=== PATIENT | male | born 1945 | race Caucasian/White ===

== ENCOUNTER 2017-01-03 14:14 | Emergency (ER) | payer OTHER, BC ==
[~2017-01-03] VITALS: Ht 188 cm; Wt 118.8 kg
[~2017-01-03 14:14] MED LIST: ALLOPURINOL300 MG PO; ATORVASTATIN CA80 MG PO; CO Q-10200 MG PO; DAILY VITE1 EAC1 PO; DIAZEPAM2 MG PO; ENDOCET 5-3251 EACH PO; GLIPIZIDE5 MG PO; HYDROCHLOROTHIA25 MG PO; JANUVIA100 MG PO; LO-DOSE ASPIRIN81 M1 PO; LOSARTAN POTAS100 MG PO; METFORMIN HCL1000 MG PO; METOPROLOL SUCC25 MG PO; NORVASC10 MG PO; SELENIUM100 MICROG PO; VITAMIN D-32000 UNI2 PO; [UNRECOGNIZED DRUG - REMARK]
[2017-01-03 15:39] VITALS: BP 150/76
== END 2017-01-03 15:39 | disposition home or self-care (01) ==
LOC: EME 14:14
DX: S01.01XA Laceration without foreign body of scalp, initial encounter (principal); S11.91XA Laceration without foreign body of unspecified part of neck, initial encounter; E11.9 Type 2 diabetes mellitus without complications; E78.5 Hyperlipidemia, unspecified; W18.30XA Fall on same level, unspecified, initial encounter; Z23 Encounter for immunization; Y92.008 Other place in unspecified non-institutional (private) residence as the place of occurrence of the external cause; Z88.8 Allergy status to other drugs, medicaments and biological substances
CPT/HCPCS: 99281; 99284

== ENCOUNTER 2017-02-22 16:08 | Observation (INO) | payer OTHER, BC ==
[~2017-02-22] VITALS: Ht 188 cm; Wt 117.4 kg
[2017-02-22 17:00] LABS: MCH 31.1 PG (29.0-34.0); MCHC 34.9 G/DL (30.0-36.0); MCV 89.1 FL (86-99); MEAN PLAT.VOLUME 11.8 uM^3 (9.0-12.4); PLATELET COUNT 164 K/uL (156-360); RBC DIS.WIDTH-CV 13.5 % (11.8-14.6); WHITE BLOOD COUNT 10.3 K/uL (4.1-10.2)
[2017-02-22 17:10] LABS: CHLORIDE 105 mEq/L (99-109); POTASSIUM 4.1 mEq/L (3.7-5.4); SODIUM 139 mEq/L (136-147)
[2017-02-22 17:11] LABS: GLUCOSE 131 mg/dL (70-99)
[2017-02-22 17:13] LABS: ANION GAP 13 MEQ/L (2-14)
[2017-02-22 17:15] LABS: GFR ESTIMATE (CALCULATED) > 59 mL/min/
[2017-02-22 17:16] LABS: UREA NITROGEN (BUN) 21 mg/dL (9-23)
[2017-02-22 17:22] LABS: TROP-I INTERPRETATION NEGATIVE; TROPONIN-I < 0.01 ng/mL (0.0-0.30)
[2017-02-22] MEDS ORDERED: ZANTAC150 MG PO (19:38)
[2017-02-22] MEDS ORDERED: CIPRO500 MG PO (19:39)
[2017-02-22 20:38] VITALS: BP 150/75
[2017-02-22 23:35] VITALS: BP 135/63
[2017-02-22 23:36] LABS: TOTAL BILIRUBIN 0.3 mg/dL (0.0-1.0)
[2017-02-22 23:37] LABS: ALKALINE PHOSPHATASE 34 IU/L (3-129)
[2017-02-22 23:39] LABS: DIRECT BILIRUBIN 0.2 mg/dL (0.0-0.3)
[2017-02-22 23:41] LABS: TROP-I INTERPRETATION NEGATIVE; TROPONIN-I < 0.01 ng/mL (0.0-0.30)
[2017-02-23 03:53] VITALS: BP 152/73
[2017-02-23 05:59] LABS: HEMATOCRIT 38.2 % (38.0-50.0); MCH 30.7 PG (29.0-34.0); MCV 90.1 FL (86-99); MEAN PLAT.VOLUME 11.6 uM^3 (9.0-12.4); PLATELET COUNT 136 K/uL (156-360); RBC DIS.WIDTH-CV 13.7 % (11.8-14.6); RBC DIS.WIDTH-SD 44.9 % (39-53); RED BLOOD COUNT 4.24 M/uL (4.00-5.50); WHITE BLOOD COUNT 7.4 K/uL (4.1-10.2)
[2017-02-23 06:28] LABS: TROP-I INTERPRETATION NEGATIVE; TROPONIN-I < 0.01 ng/mL (0.0-0.30)
[2017-02-23 06:30] LABS: ANION GAP 12 MEQ/L (2-14); CHLORIDE 103 MEQ/L (99-109); GFR ESTIMATE (CALCULATED) > 59 mL/min/; GLUCOSE 105 mg/dL (70-99); SAMPLE HEMOLYSIS CHECK 0; SAMPLE ICTERIC CHECK 0; SAMPLE LIPEMIA CHECK 0; SODIUM 140 MEQ/L (136-147); UREA NITROGEN (BUN) 18 mg/dL (9-23)
[2017-02-23 09:45] VITALS: BP 151/72
[2017-02-23 11:23] LABS: ADD MIUA? NO; BILIRUBIN NEGATIVE; BLOOD NEGATIVE; COLOR YELLOW ((YELLOW)); GLUCOSE (STRIP) NEGATIVE; KETONES NEGATIVE; LEUKOCYTES NEGATIVE; NITRITE NEGATIVE; PROTEIN (STRIP) NEGATIVE; UROBILINOGEN 0.2 MG/DL (0.2-1.0)
[2017-02-23 12:10] VITALS: BP 132/65
[2017-02-23 16:22] VITALS: BP 139/70; BP 199/70
== END 2017-02-23 18:40 | disposition home or self-care (01) ==
LOC: EME 16:08 → EDOF 19:56 → 5WEST 19:56 → EDOF 19:56 → 5WEST 20:31
PROVIDERS: Family Medicine; Hospitalist
DX: R07.9 Chest pain, unspecified (principal); I10 Essential (primary) hypertension; E11.65 Type 2 diabetes mellitus with hyperglycemia; E78.5 Hyperlipidemia, unspecified; I35.0 Nonrheumatic aortic (valve) stenosis; I49.3 Ventricular premature depolarization; N41.1 Chronic prostatitis; Z82.49 Family history of ischemic heart disease and other diseases of the circulatory system; Z88.1 Allergy status to other antibiotic agents; Z88.8 Allergy status to other drugs, medicaments and biological substances; Z79.84 Long term (current) use of oral hypoglycemic drugs; Z79.82 Long term (current) use of aspirin
CPT/HCPCS: 71020; 80048; 80076; 81003; 82948; 84484; 85027; 93005; 99281; 99285; G0378

== ENCOUNTER 2017-12-23 18:06 | Observation (INO) | payer OTHER, BC ==
[~2017-12-23] VITALS: Ht 188 cm; Wt 118.0 kg
[~2017-12-23 18:06] MED LIST changes: +CIPRO500 MG PO; +ZANTAC150 MG PO
[2017-12-23 19:30] LABS: BASOPHIL (%) 0.3 % (0-1); EOSINOPHIL (%) 1.3 % (0-5); EOSINOPHIL COUNT 0.1 K/uL (0-0.3); HEMATOCRIT 39.9 % (38.0-50.0); HEMOGLOBIN 13.8 G/DL (12.5-16.6); IMMATURE GRANULOCYTE (%) 0.5 % (0.0-0.7); LYMPHOCYTE (%) 22.1 % (15-42); LYMPHOCYTE COUNT 1.7 K/uL (1.0-2.8); MCHC 34.6 G/DL (30.0-36.0); MCV 89.7 FL (86-99); MONOCYTE (%) 7.6 % (3-12); MONOCYTE COUNT 0.6 K/uL (0-0.8); NEUTROPHIL (%) 68.2 % (45-76); NEUTROPHIL COUNT 5.4 K/uL (1.8-6.4); PLATELET COUNT 161 K/uL (156-360); RBC DIS.WIDTH-CV 13.5 % (11.8-14.6); RED BLOOD COUNT 4.45 M/uL (4.00-5.50); WHITE BLOOD COUNT 7.9 K/uL (4.1-10.2)
[2017-12-23 19:39] LABS: CHLORIDE 102 mEq/L (99-109); POTASSIUM 4.4 mEq/L (3.7-5.4); SODIUM 139 mEq/L (136-147)
[2017-12-23 19:40] LABS: GLUCOSE 142 mg/dL (70-99)
[2017-12-23 19:44] LABS: GFR ESTIMATE (CALCULATED) > 59 mL/min/ (58.99-99999)
[2017-12-23 19:45] LABS: UREA NITROGEN (BUN) 18 mg/dL (9-23)
[2017-12-23 19:51] LABS: TROP-I INTERPRETATION NEGATIVE; TROPONIN-I 0.02 ng/mL (0.0-0.30)
[2017-12-23] MEDS ORDERED: SELENIUM50 MCG PO (21:04)
[2017-12-23] MEDS ORDERED: METOPROLOL SUCC25 MG PO (21:04)
[2017-12-23 22:49] LABS: ALBUMIN 4.3 g/dL (3.2-4.8)
[2017-12-23 22:52] LABS: TOTAL PROTEIN 7.8 g/dL (6.4-8.3)
[2017-12-23 22:54] LABS: TOTAL BILIRUBIN 0.4 mg/dL (0.0-1.0)
[2017-12-23 22:55] LABS: ALKALINE PHOSPHATASE 41 IU/L (3-129)
[2017-12-23 22:58] LABS: ALT (GPT) 26 IU/L (3-49); AST (GOT) 22 IU/L (2-34); DIRECT BILIRUBIN 0.2 mg/dL (0.0-0.3)
[2017-12-23 22:59] LABS: LIPASE 37 U/L (1.0-51.0)
[2017-12-24 00:10] VITALS: BP 143/75
[2017-12-24 02:00] LABS: HEMATOCRIT 36.5 % (38.0-50.0); HEMOGLOBIN 12.5 G/DL (12.5-16.6); MCH 30.8 PG (29.0-34.0); MCHC 34.2 G/DL (30.0-36.0); MCV 89.9 FL (86-99); PLATELET COUNT 165 K/uL (156-360); RBC DIS.WIDTH-CV 13.7 % (11.8-14.6); RED BLOOD COUNT 4.06 M/uL (4.00-5.50); WHITE BLOOD COUNT 8.6 K/uL (4.1-10.2)
[2017-12-24 02:16] LABS: CHLORIDE 104 mEq/L (99-109); POTASSIUM 4.1 mEq/L (3.7-5.4); SODIUM 141 mEq/L (136-147)
[2017-12-24 02:18] LABS: GLUCOSE 197 mg/dL (70-99)
[2017-12-24 02:22] LABS: CREATININE 1.1 mg/dL (0.6-1.3); GFR ESTIMATE (CALCULATED) > 59 mL/min/ (58.99-99999)
[2017-12-24 02:23] LABS: TROP-I INTERPRETATION NEGATIVE; TROPONIN-I < 0.01 ng/mL (0.0-0.30); UREA NITROGEN (BUN) 18 mg/dL (9-23)
[2017-12-24 07:05] VITALS: BP 122/68
[2017-12-24 08:18] LABS: TROP-I INTERPRETATION NEGATIVE; TROPONIN-I < 0.01 ng/mL (0.0-0.30)
[2017-12-24 12:07] VITALS: BP 140/69
== END 2017-12-24 13:27 | disposition home or self-care (01) ==
LOC: EME 18:06 → EDOF 21:47 → 4SOUTH 21:47 → ENRESERV 21:49 → 4SOUTH 12-24 → ENPENDDIS 12-24 11:01 → 4SOUTH 12-24 13:27
PROVIDERS: Emergency Medicine; Hospitalist
DX: R07.9 Chest pain, unspecified (principal); I35.0 Nonrheumatic aortic (valve) stenosis; I10 Essential (primary) hypertension; E78.5 Hyperlipidemia, unspecified; E11.9 Type 2 diabetes mellitus without complications; Z85.828 Personal history of other malignant neoplasm of skin; Z88.1 Allergy status to other antibiotic agents; Z88.8 Allergy status to other drugs, medicaments and biological substances; Z82.5 Family history of asthma and other chronic lower respiratory diseases; M19.90 Unspecified osteoarthritis, unspecified site; G89.29 Other chronic pain; M54.9 Dorsalgia, unspecified; E55.9 Vitamin D deficiency, unspecified; Z85.820 Personal history of malignant melanoma of skin; Z85.51 Personal history of malignant neoplasm of bladder; Z79.84 Long term (current) use of oral hypoglycemic drugs; Z79.82 Long term (current) use of aspirin
CPT/HCPCS: 71045; 80048; 80076; 82948; 83690; 84484; 85025; 85027; 86850; 86900; 86901; 93005; 99281; 99285; G0378; J1644; J1815